=== PATIENT | female | born 1945 | race Two or more races ===

== ENCOUNTER 2016-05-15 14:15 | Emergency (ER) | payer MEDICAID, OTHER ==
[~2016-05-15 14:15] MED LIST: ADVAIR 25028 BLISTE1 INH; ALBUTEROL17 GM INH; LASIX20 M1 PO; LEVAQUIN750 M1 PO; PREDNISONE10 M1 PO; PREDNISONE20 MG PO; PROAIR HFA8.5 GM; VENTOLIN HFA18 G2 INH; VENTOLIN HFA18 GM IH; ZITHROMAX250MG Z-PAK PO
[2016-05-15] MEDS ORDERED: TRAMADOL HCL50 M2 PO (15:47)
== END 2016-05-15 16:25 ==
LOC: EDMED 14:15
PROC: 2W3DX1Z Immobilization of Left Lower Arm using Splint (ICD-10-PCS; principal; 2016-05-15)
DX: S52.512A Displaced fracture of left radial styloid process, initial encounter for closed fracture (principal); S52.612A Displaced fracture of left ulna styloid process, initial encounter for closed fracture; J45.909 Unspecified asthma, uncomplicated; Z79.51 Long term (current) use of inhaled steroids; W19.XXXA Unspecified fall, initial encounter